=== PATIENT | male | born 1990 | race African-American/Black ===

== ENCOUNTER 2023-10-29 16:18 | Emergency (ER) | payer BC ==
[2023-10-29] MEDS ORDERED: LIDOCAINE 1% 20 ML MDV ONE (16:47)
[2023-10-29] MEDS ORDERED: MORPHINE 4 MG/ML SYR ONE (16:48)
[2023-10-29 17:14] LABS: Absolute Eosinophils 0.1 K/uL (0-0.5); Absolute Lymphocytes (CBC) 1.3 K/uL (0.7-4.9); Absolute Monocytes 0.5 K/uL (0.1-1.3); Absolute Neutrophil 2.1 K/uL (1.8-8.0); Basophils % 0.7 % (0-1.3); Eosinophils % 2.2 % (0-4.4); Hematocrit 43.8 % (39.6-49.0); Hemoglobin 13.9 g/dL (13.6-17.9); Lymphocytes % 33.1 % (15.3-44.8); MCH 26.4 pg (27.0-35.0); MCHC 31.8 g/dL (32.0-36.0); MCV 83.1 fL (80-100); MPV 9.3 fL (7.6-11.3); Monocytes % 11.4 % (3.3-12.3); Neutrophils % 52.6 % (41.7-73.7); Platelets 222 thou/uL (152-406); RBC Red Blood Cell Count 5.27 M/uL (4.33-5.43); Red Cell Distribution Width 14.6 % (12.1-15.2)
[2023-10-29 17:30] LABS: Anion Gap 7.6 mEq/L (5.0-15.0)
[2023-10-29 17:33] LABS: Potassium 4.6 mEq/L (3.5-5.1)
[2023-10-29 17:37] LABS: PT Prothrombin Time 36.9 SECONDS (9.4-12.5); PTT, Activated Partial Thromb 40.1 SECONDS (24.3-36.9); Protime INR 3.41
[2023-10-29] MEDS ORDERED: NA CHLORIDE 0.9% 1,000 ML ONE (18:12)
--- NOTE | 2023-10-29 19:08 | ER ---
Nurse's Notes [facility] Name: Ernie Chinchilla Age: 33 yrs Sex: Male : 1990 Arrival Date: 10/29/2023 Time: 16:18 Bed 15 Private MD: Diagnosis: Laceration without foreign body of lower leg-left Presentation: 10/28 16:24 Chief complaint: Patient states: "I WAS CUTTING BAMBOO WITH A BIG KNIFE AND GOT MY aa5 LEG". LACERATION NOTED TO LEFT CALF, MODERATE AMOUNT OF BLEEDING NOTED, PRESSURE DRESSING APPLIED. 16:24 Coronavirus screen: At this time, the client does not indicate any symptoms associated aa5 with coronavirus-19. Ebola Screen: Patient denies travel to an Ebola-affected area in the 21 days before illness onset. Complicating Factors: There are no complicating factors for this patient. Initial Sepsis Screen: Does the patient meet any 2 criteria? No. Patient's initial sepsis screen is negative. Does the patient have a suspected source of infection? No. Patient's initial sepsis screen is negative. Risk Assessment: Do you want to hurt yourself or someone else? Patient reports no desire to harm self or others. Onset of symptoms was October 29, 2023. 16:24 Acuity: EDER 3 aa5 16:24 Method Of Arrival: Ambulatory aa5 Triage Assessment: 16:30 General: Appears in no apparent distress. uncomfortable, Behavior is calm, cooperative, bp appropriate for age. Pain: Complains of pain in left calf. Injury Description: Laceration sustained to left calf is 2.6 to 7.5 cm long, not bleeding. Historical: - Allergies: 16:25 No Known Allergies; aa5 - Home Meds: 16:25 Coumadin Oral [Active]; aa5 - PMHx: 16:25 MECHANICAL AORTIC HEART VALVE; aa5 - Immunization history:: Last tetanus immunization: unknown. - Infectious Disease History:: Denies. - Social history:: Smoking status: Patient denies any tobacco usage or history of. Screenin:01 [facility] ED Fall Risk Assessment (Adult) History of falling in the last 3 months, bp including since admission No falls in past 3 months (0 pts) Confusion or Disorientation No (0 pts) Intoxicated or Sedated No (0 pts) Impaired Gait No (0 pts) Mobility Assist Device Used No (0 pt) Altered Elimination No (0 pt) Score/Fall Risk Level 0 - 2 = Low Risk. Abuse screen: Denies threats or abuse. Denies injuries from another. Nutritional screening: No deficits noted. Tuberculosis screening: No symptoms or risk factors identified. Assessment: 16:30 General: Appears distressed, uncomfortable, Behavior is calm, cooperative, appropriate bp for age. Pain: Complains of pain in left calf. Musculoskeletal: Circulation, motion, and sensation intact. Range of motion:. Injury Description: Laceration sustained to left calf is bleeding moderately. 17:32 Reassessment: Patient and/or family updated on plan of care and expected duration. Pain bp level reassessed. Patient is alert, oriented x 3, equal unlabored respirations, skin warm/dry/pink. 19:52 Reassessment: Patient and/or family updated on plan of care and expected duration. Pain ha1 level reassessed. Patient is alert, oriented x 3, equal unlabored respirations, skin warm/dry/pink. Patient denies pain at this time. Patient states feeling better. Patient states symptoms have improved. Vital Signs: 16:24 BP 139 / 84; Pulse 73; Resp 18 S; Temp 97.8(TE); Pulse Ox 100% on R/A; Weight 74.84 kg aa5 (R); Height 5 ft. 6 in. (R); 17:32 BP 121 / 77; Pulse 68; Resp 16; Pulse Ox 97% ; bp 18:32 BP 115 / 77; Pulse 54; Resp 16; Pulse Ox 100% ; bp 19:52 BP 128 / 78; Pulse 77; Resp 17 S; Temp 97.8(T); Pulse Ox 100% on R/A; ha1 16:24 Body Mass Index 26.63 (74.84 kg, 167.64 cm) aa5 ED Course: 16:23 Patient arrived in ED. ra3 16:24 Arm band placed on Patient placed in an exam room, on a stretcher. aa5 16:26 Cameron Starr PA is PHCP. cp 16:26 Verenice Thornton MD is Attending Physician. cp 16:26 Triage completed. aa5 16:41 Nikko Powell, RN is Primary Nurse. bp 17:01 Patient has correct armband on for positive identification. bp 17:01 Initial lab(s) drawn, by me, sent to lab. Inserted saline lock: 20 gauge in right bp antecubital area, using aseptic technique. Blood collected. 17:54 XRAY Tib Fib LEFT In Process Unspecified. EDMS 18:33 Assist provider with laceration repair on left calf that was between 2.6 to 7.5 cm bp using sutures. Set up tray. Performed by Cameron MALONE Dressed with Effie, Patient tolerated well. 19:53 Provided Education on: wound care and follow ups . ha1 19:53 IV discontinued, intact, bleeding controlled, No redness/swelling at site. Pressure ha1 dressing applied. Administered Medications: 17:01 Drug: morphine IM 4 mg IM once Route: IM; Site: right deltoid; bp 17:03 Follow up: Response: No adverse reaction bp 17:03 Drug: Lidocaine Infiltration (2 %) 10 ml 5 ml Infiltration once; with epinephrine bp Volume: 5 ml; Route: Infiltration; 19:52 Follow up: Response: No adverse reaction ha1 18:05 Drug: NS 0.9% IV 1000 ml IV at 1 bolus Per protocol; 1000 mL bolus Route: IV; Rate: 1 bp bolus; Site: right antecubital; 19:51 Follow up: Response: No adverse reaction; IV Status: Completed infusion; IV Intake: ha1 1000ml 19:05 CANCELLED (Physician Discretion): morphineor iv 4 mg IVP once over 4 mins cp 19:28 Drug: Ondansetron IVP 4 mg IVP once; over 2 minutes Route: IVP; Site: right antecubital;ha1 19:51 Follow up: Response: No adverse reaction; Marked relief of symptoms ha1 19:30 Drug: fentaNYL (PF) IVP 25 mcg IVP once Route: IVP; Site: right antecubital; ha1 19:51 Follow up: Response: No adverse reaction; Marked relief of symptoms; Pain is decreased; ha1 RASS: Alert and Calm (0) Medication: 19:53 VIS not applicable for this client. ha1 Intake: 19:51 IV: 1000ml; Total: 1000ml. ha1 Outcome: 19:08 Discharge ordered by . cp 19:53 Discharged to home via wheelchair, with family, ha1 19:53 Condition: stable 19:53 Discharge instructions given to patient, family, Instructed on discharge instructions, follow up and referral plans. medication usage, wound care, Demonstrated understanding of instructions, follow-up care, medications, wound care, 19:54 Patient left the ED. ha1 Signatures: Dispatcher [employer] EDElise Lamb, RN RN aa5 Cameron Starr PA PA cp Peltier, Brian, RN RN bp Nevaeh Kaur RN RN ha1 Kathleen Sharma 3
--- NOTE | 2023-10-29 19:08 | EDPHYS ---
Physician Documentation [facility] Name: Ernie Chinchilla Age: 33 yrs Sex: Male : 1990 Arrival Date: 10/29/2023 Time: 16:18 Bed 15 Private MD: ED Physician Verenice Thornton HPI: 10/28 16:35 This 33 yrs old Black Male presents to ER via Ambulatory with complaints of Laceration cp To Leg - Blood thinners. 16:35 The patient has a laceration occurred at home, outdoors, and using knife accidentally cp injured left lower leg. The laceration(s) is(are) located on the left calf. Onset: The symptoms/episode began/occurred just prior to arrival. Associated signs and symptoms: Pertinent positives: dizziness, heavy bleeding, Pertinent negatives: loss of consciousness, numbness distal to injury, suspected foreign body. Patient prescribed Warfarin due to mechanical cardiac valve. Historical: - Allergies: 16:25 No Known Allergies; aa5 - Home Meds: 16:25 Coumadin Oral [Active]; aa5 - PMHx: 16:25 MECHANICAL AORTIC HEART VALVE; aa5 - Immunization history:: Last tetanus immunization: unknown. - Infectious Disease History:: Denies. - Social history:: Smoking status: Patient denies any tobacco usage or history of. ROS: 16:40 MS/extremity: Positive for laceration, of the left calf, Negative for paresthesias, cp 16:40 Constitutional: Negative for body aches, chills, fever, cp 16:40 Cardiovascular: Negative for chest pain, palpitations, 16:40 Respiratory: Negative for cough, shortness of breath, wheezing, 16:40 Neuro: Positive for dizziness, Negative for altered mental status, weakness, 16:40 All other systems are negative, Exam: 16:45 Constitutional: The patient appears in no acute distress, alert, awake, non-toxic, well cp developed, well nourished, uncomfortable, 16:45 Head/Face: Normocephalic, atraumatic. cp 16:45 Eyes: Pupils: equal, round, and reactive to light and accomodation, Extraocular movements: intact throughout, Sclera: no appreciated abnormality, Lids and lashes: appear normal, bilaterally, 16:45 ENT: External ear(s): are unremarkable, Nose: is normal, Mouth: Lips: moist, Oral mucosa: moist, Posterior pharynx: Airway: no evidence of obstruction, patent, 16:45 Neck: ROM/movement: is normal, is supple, without pain, no range of motions limitations, 16:45 Chest/axilla: Inspection: normal, 16:45 Cardiovascular: Rate: normal, Rhythm: regular, 16:45 Respiratory: the patient does not display signs of respiratory distress, Respirations: normal, no use of accessory muscles, no retractions, labored breathing, is not present, Breath sounds: are clear throughout, no decreased breath sounds, no stridor, no wheezing, 16:45 Abdomen/GI: Inspection: abdomen appears normal, Palpation: abdomen is soft and non-tender, in all quadrants, 16:45 Back: pain, is absent, ROM is normal, 16:45 Skin: injury, laceration(s), the wound is approximately 5 cm(s), of the left calf, that can be described as no foreign body, linear, with moderate bleeding, 16:45 Neuro: Orientation: to person, place \T\ time. Mentation: is normal, Motor: moves all fours, strength is normal, Sensation: is normal, Vital Signs: 16:24 BP 139 / 84; Pulse 73; Resp 18 S; Temp 97.8(TE); Pulse Ox 100% on R/A; Weight 74.84 kg aa5 (R); Height 5 ft. 6 in. (R); 17:32 BP 121 / 77; Pulse 68; Resp 16; Pulse Ox 97% ; bp 18:32 BP 115 / 77; Pulse 54; Resp 16; Pulse Ox 100% ; bp 19:52 BP 128 / 78; Pulse 77; Resp 17 S; Temp 97.8(T); Pulse Ox 100% on R/A; ha1 16:24 Body Mass Index 26.63 (74.84 kg, 167.64 cm) aa5 MDM: 16:26 Patient medically screened. cp 19:07 Data reviewed: vital signs, nurses notes, radiologic studies, plain films, and as a cp result, I will discharge patient. 19:07 Differential diagnosis: superficial laceration, tendon injury, vascular injury. cp Counseling: I had a detailed discussion with the patient and/or guardian regarding the historical points, exam findings, and any diagnostic results supporting the discharge/admit diagnosis, lab results, radiology results, to return to the emergency department if symptoms worsen or persist or if there are any questions or concerns that arise at home. Response to treatment: the patient's symptoms have markedly improved after treatment, and as a result, I will discharge patient. Special discussion: wound care. 10/28 16:41 Order name: CBC with Diff; Complete Time: 17:57 cp 10/28 16:41 Order name: BMP; Complete Time: 17:57 cp 10/28 17:57 Interpretation: Normal except: CL 108; BUN 22; CRE 1.66; GFR 55. cp 10/28 16:41 Order name: PT-INR; Complete Time: 17:57 cp 10/28 16:41 Order name: Ptt, Activated; Complete Time: 17:57 cp 10/28 16:30 Order name: XRAY Tib Fib LEFT cp 10/28 16:30 Order name: Dressing - Wound; Complete Time: 16:41 cp 10/28 16:30 Order name: Gloves, Sterile; Complete Time: 16:41 cp 10/28 16:30 Order name: Setup Suture Tray; Complete Time: 16:41 cp 10/28 16:41 Order name: IV; Complete Time: 17:01 cp Administered Medications: 17:01 Drug: morphine IM 4 mg IM once Route: IM; Site: right deltoid; bp 17:03 Follow up: Response: No adverse reaction bp 17:03 Drug: Lidocaine Infiltration (2 %) 10 ml 5 ml Infiltration once; with epinephrine bp Volume: 5 ml; Route: Infiltration; 19:52 Follow up: Response: No adverse reaction ha1 18:05 Drug: NS 0.9% IV 1000 ml IV at 1 bolus Per protocol; 1000 mL bolus Route: IV; Rate: 1 bp bolus; Site: right antecubital; 19:51 Follow up: Response: No adverse reaction; IV Status: Completed infusion; IV Intake: ha1 1000ml 19:05 CANCELLED (Physician Discretion): morphineor iv 4 mg IVP once over 4 mins cp 19:28 Drug: Ondansetron IVP 4 mg IVP once; over 2 minutes Route: IVP; Site: right antecubital;ha1 19:51 Follow up: Response: No adverse reaction; Marked relief of symptoms ha1 19:30 Drug: fentaNYL (PF) IVP 25 mcg IVP once Route: IVP; Site: right antecubital; ha1 19:51 Follow up: Response: No adverse reaction; Marked relief of symptoms; Pain is decreased; ha1 RASS: Alert and Calm (0) Disposition Summary: 10/29/23 19:08 Discharge Ordered Notes: Location: Home cp Problem: new cp Symptoms: have improved cp Condition: Stable cp Diagnosis - Laceration without foreign body of lower leg - left cp Followup: cp - With: Private Physician - When: 10 - 14 days - Reason: Staple/Suture removal Discharge Instructions: - Discharge Summary Sheet cp - Laceration Care, Adult cp - Sutured Wound Care cp Forms: - Medication Reconciliation Form cp - Antibiotic Education cp - Prescription Opioid Use cp - Patient Portal Instructions cp - Leadership Thank You Letter cp Signatures: Dispatcher [employer] Elise Leong RN RN aa5 Cameron Starr PA PA cp Nikko Powell RN RN bp Nevaeh Kaur RN RN ha1 Corrections: (The following items were deleted from the chart) 19:05 19:05 morphine IVP or IV 4 mg IVP once over 4 mins ordered. cp cp
[2023-10-29] MEDS ORDERED: FENTANYL CITR 100 MCG/2 ML ONE (19:29)
[2023-10-29] MEDS ORDERED: ONDANSETRON 4 MG/2 ML VIAL ONE (19:29)
--- NOTE | 2023-10-29 19:48 | RAD REPORT ---
EXAM DESCRIPTION: RAD - Tib Fib Left - 10/29/2023 5:52 pm CLINICAL HISTORY: laceration;Pain COMPARISON: No comparisons TECHNIQUE: Left tibia and fibula, 2 views. FINDINGS: No fracture is identified. There is no dislocation or periosteal reaction noted. No foreign body or other soft tissue abnormalit y. IMPRESSION: Negative left tibia & fibula examination.
[2023-10-29 20:05] VITALS: TEMP 97.8
[2023-10-29 20:07] VITALS: O2SAT 100
[2023-10-29 20:08] VITALS: BP 128/78
== END 2023-10-29 19:54 | disposition home or self-care (01) ==
LOC: ER 16:18
PROC: 0HQLXZZ Repair Left Lower Leg Skin, External Approach (ICD-10-PCS; principal; 2023-10-29)
DX: S81.812A Laceration without foreign body, left lower leg, initial encounter (principal); Z79.01 Long term (current) use of anticoagulants
CPT/HCPCS: 96361; 85025; 80048; 36415; 85610; 85730; 73590; 96375; 96372; 96374; 99284; 12002; J2001; J3010; J2405; J7030